=== PATIENT | male | born 1995 | race Native Hawaiian/Other Pacific Islander ===

== ENCOUNTER 2017-08-07 18:03 | Emergency (ER) | payer OTHER ==
[~2017-08-07] VITALS: Ht 182.9 cm; Wt 86.2 kg
[2017-08-07 19:00] LABS: PLATELET COUNT 206 K/uL (142-355)
[2017-08-07 19:53] VITALS: BP 140/78; TEMP 98.5
== END 2017-08-07 19:57 | disposition home or self-care (01) ==
LOC: ED 18:03
DX: T63.301A Toxic effect of unspecified spider venom, accidental (unintentional), initial encounter (principal)
CPT/HCPCS: 36415; 85027; 96365; 96375; 99284; J0696; J1885